=== PATIENT | female | born 1985 | race Caucasian/White ===

== ENCOUNTER 2022-12-09 10:37 | Emergency (ER) | payer OTHER, SELFPAY ==
[2022-12-09 10:45] VITALS: BP 109/58; PULSE 83; RESP 14; TEMP 37; O2SAT 100
--- NOTE | 2022-12-09 11:26 | ED.SKABFB ---
HPI - Skin/Abscess/Foreign Bdy General Chief complaint: Skin/Abscess/Foreign Body Stated complaint: Rash Time Seen by Provider: 12/09/22 11:20 Source: patient, RN notes reviewed and old records reviewed Mode of arrival: ambulatory Limitations: no limitations History of Present Illness HPI narrative: 37 year old female who presents to [facility] care with 3 day history of rash to upper arms, back and to abdomen which is itchy, think could be flare of her psoriasis. Patient does see wrapper opener at [facility] and has prescribed ointment she uses to her skin and scalp. Patient reports that she has been taking Benadryl for the itching with minimal relief. Patient reports that she has recently been tanning, denies any fevers. MD complaint: rash Onset (ago): day(s) (3) Treatments prior to arrival: Benadryl Related Data Home Medications Medication Instructions Recorded Confirmed famotidine 20 mg tablet 20 mg PO DAILY 12/09/22 12/09/22 gabapentin 300 mg tablet 300 mg PO TID 12/09/22 12/09/22 hydrocodone 7.5 mg-acetaminophen 1 tablet PO Q8H 12/09/22 12/09/22 325 mg tablet omeprazole 20 mg tablet,delayed 20 mg PO DAILY 12/09/22 12/09/22 release tizanidine 2 mg tablet 2 mg PO DAILY 12/09/22 12/09/22 Allergies Allergy/AdvReac Type Severity Reaction Status Date / Time No Known Allergies Allergy Verified 12/09/22 10:57 Review of Systems Review of Systems: CONSTITUTIONAL: Denies fever, chills, or sweats. CARDIOVASCULAR: Denies chest pain, palpitations, or edema. RESPIRATORY: Denies cough or dyspnea. SKIN: Reports itchy rash to abdomen, back and upper arm MUSCULOSKELETAL: Denies joint pain or myalgia. NEUROLOGIC: Denies headache, numbness, or weakness. All systems reviewed & are unremarkable except as noted in HPI and below PMFSH Past Medical History Medical History (Updated 12/10/22 @ 08:50 by Lucretia Bautista NP) Anxiety Chronic neck and back pain GERD (gastroesophageal reflux disease) History of basal cell cancer left shoulder and groin Social History Social History (Updated 12/10/22 @ 08:44 by Lucretia Bautista NP) Smoking packs per day: 1 Smoking cigarettes per day: 20.0 Years smoked: 15 Smoking pack-years: 15.00 Smoking status: Current every day smoker Alcohol intake: never Substance use: current Substance use type: opiates Last use: for pain control Living arrangements: with family Gender identity (if verbalized by the patient): Female Comments At time of signature, agree with nursing past medical, surgical, social and family history. There is no relevant family history pertinent to the presenting complaint Exam Narrative: GENERAL: Well-appearing, well-nourished, and in no acute distress. HEAD: Normocephalic, atraumatic. EYES: PERRLA, conjunctivae clear, and EOMI. ENT: Mucous membranes moist. Oropharynx without edema, erythema or lesions. NECK: Supple. No lymphadenopathy CHEST: Clear to auscultation. No respiratory distress.SAO2 100% on room air HEART: Regular rate and rhythm. SKIN: Warm, dry.? Scattered Patches of brownish red raised rash to back, abdomen and upper arms which is itchy, no drainage. NEURO:? Alert and oriented x3. PSYCH: Normal mood and affect Course Course Emergency Course: Patient is aware of diagnosis, understands and agrees to treatment plan.? Anticipatory guidance given.? Patient agrees to follow-up as directed and is aware of reasons to seek care at the emergency department. Portions of this record may have been created with voice recognition software Level of Care: Express Care Visit Vital Signs Vital signs: Vital Signs Temperature 37.0 C 12/09/22 10:45 Pulse Rate 83 12/09/22 10:45 Respiratory Rate 14 12/09/22 10:45 Blood Pressure 109/58 L 12/09/22 10:45 Pulse Oximetry 100 12/09/22 10:45 Oxygen Delivery Room Air 12/09/22 10:45 Temperature 37.0 C 12/09/22 10:45 Pulse Rate 8
== END 2022-12-09 11:44 | disposition home or self-care (01) ==
PROVIDERS: Emergency Provider Registered Nurse; PCP Family Medicine
DX: L40.9 Psoriasis, unspecified (principal); F17.210 Nicotine dependence, cigarettes, uncomplicated; K21.9 Gastro-esophageal reflux disease without esophagitis
CPT/HCPCS: 99203; G0463